=== PATIENT | male | born 1990 | race African-American/Black ===

== ENCOUNTER 2025-04-23 11:31 | Outpatient (CLI) | payer BC, SELFPAY | END 2025-04-23 11:32 | disposition home or self-care (01) | LOC: NFLDREF 11:32 | PROVIDERS: Visit Provider Internal Medicine Addiction Medicine | DX: F11.90 Opioid use, unspecified, uncomplicated (principal); E03.9 Hypothyroidism, unspecified | CPT/HCPCS: 84439; 84443 ==